=== PATIENT | female | born 1965 | race Caucasian/White ===

== ENCOUNTER 2017-03-08 14:15 | Emergency (ER) | payer BC, OTHER ==
[~2017-03-08] VITALS: Ht 154.9 cm; Wt 65.8 kg
[2017-03-08 14:15] VITALS: BP 130/67
--- NOTE | 2017-03-08 14:25 | NUR ---
Patient to bed 06.
--- NOTE | 2017-03-08 14:40 | NUR ---
51/F c/o laceration to frontal head after trimming branches at home and a branch fell onto her head. Denies LOC. No active bleeding at this time. Laceration approximately 2 cm. Incident occurred at approximately 1400. AOX4, clear speech. Pt states "I just feel relaxed." VSS.
--- NOTE | 2017-03-08 14:54 | NUR ---
Patient being evaluated by Dr. Shaikh at bedside.
--- NOTE | 2017-03-08 15:11 | NUR ---
Dr. Shaikh at bedside for antonio/laceration repair.
[2017-03-08 15:20] VITALS: BP 130/67
--- NOTE | 2017-03-08 15:20 | NUR ---
Patient discharged with v/s stable. Written and verbal after care instructions given and explained. Patient verbalized understanding. Ambulatory with steady gait. All questions addressed prior to discharge. Advised to follow up with PMD.
== END 2017-03-08 15:20 | disposition home or self-care (01) ==
LOC: MED 14:15
DX: S01.01XA Laceration without foreign body of scalp, initial encounter (principal); J45.909 Unspecified asthma, uncomplicated; Z90.710 Acquired absence of both cervix and uterus; Z88.0 Allergy status to penicillin; W20.8XXA Other cause of strike by thrown, projected or falling object, initial encounter; Y93.89 Activity, other specified; Y92.89 Other specified places as the place of occurrence of the external cause; Y99.8 Other external cause status
CPT/HCPCS: 12001; 99283